=== PATIENT | female | born 1980 | race Two or more races ===

== ENCOUNTER 2018-07-26 13:12 | Inpatient (IN) | payer OTHER ==
[~2018-07-26] VITALS: Ht 170.2 cm; Wt 83.9 kg
[2018-08-11] MEDS ORDERED: ULTRACET PO (11:24)
[2018-08-11] MEDS ORDERED: COLACE100 MG PO (11:24)
== END 2018-08-11 11:38 | disposition home or self-care (01) | DRG 743 ==
LOC: SURH 08-02 10:15 → OB/GYN 08-09 05:38 → O/R 08-09 05:38 → SURH 08-09 10:15 → OB/GYN 08-09 11:51
PROVIDERS: ADMIT Obstetrics & Gynecology Gynecologic Oncology
PROC: 0UT24ZZ Resection of Bilateral Ovaries, Percutaneous Endoscopic Approach (ICD-10-PCS; 2018-08-09)
PROC: 0UT74ZZ Resection of Bilateral Fallopian Tubes, Percutaneous Endoscopic Approach (ICD-10-PCS; 2018-08-09)
PROC: 0UT94ZZ Resection of Uterus, Percutaneous Endoscopic Approach (ICD-10-PCS; principal; 2018-08-09 10:15)
DX: N80.0 Endometriosis of uterus (principal); N83.02 Follicular cyst of left ovary; N80.1 Endometriosis of ovary; C50.919 Malignant neoplasm of unspecified site of unspecified female breast; Z15.01 Genetic susceptibility to malignant neoplasm of breast; Z92.21 Personal history of antineoplastic chemotherapy